=== PATIENT | male | born 1955 | race Caucasian/White ===

== ENCOUNTER 2019-02-04 19:45 | Emergency (ER) | payer OTHER ==
[~2019-02-04] VITALS: Ht 185.4 cm; Wt 125.2 kg
[2019-02-04 19:49] VITALS: Ht 185.4 cm; Wt 125.2 kg
[2019-02-04 21:12] LABS: BASOPHIL % 0.6 % (0-2); PLATELET COUNT 186 x10^3mcL (130-400); RED CELL DISTRIBUTION WIDTH 14.1 % (11.5-14.5)
[2019-02-04 21:31] LABS: CALCIUM 8.5 mg/dL (8.5-10.1); CARBON DIOXIDE 26.3 mmol/L (21-32); CHLORIDE SERUM 105 mmol/L (98-107); GFR1 > 60 mL/min; GLUCOSE SERUM 108 mg/dL (74-106); POTASSIUM SERUM 3.7 mmol/L (3.5-5.1); SODIUM SERUM 141 mmol/L (136-145)
[2019-02-04 21:54] LABS: ALBUMIN 4.1 g/dL (3.4-5.0); ALKALINE PHOSPHATASE 75 U/L (46-116); ALT/SGPT 36 U/L (16-63); AST/SGOT 26 U/L (15-37); TOTAL PROTEIN, SERUM 7.7 g/dL (6.4-8.2)
[2019-02-05 01:32] VITALS: BP 135/99
== END 2019-02-05 01:32 | disposition home or self-care (01) ==
LOC: ED 19:45
PROVIDERS: Emergency Medicine
DX: R07.89 Other chest pain (principal); I27.20 Pulmonary hypertension, unspecified; I71.2 Thoracic aortic aneurysm, without rupture; Z98.890 Other specified postprocedural states
CPT/HCPCS: 36415; Q9967